=== PATIENT | male | born 1965 | race Caucasian/White ===

== ENCOUNTER 2017-01-25 15:08 | Emergency (ER) | payer BC, OTHER ==
[~2017-01-25] VITALS: Ht 182.9 cm; Wt 79.4 kg
[2017-01-25 15:10] VITALS: BP 147/96
[2017-01-25] MEDS ORDERED: KEFLEX500 MG PO (15:30)
== END 2017-01-25 15:58 | disposition home or self-care (01) ==
LOC: ER 15:08
DX: S61.311A Laceration without foreign body of left index finger with damage to nail, initial encounter (principal); F17.210 Nicotine dependence, cigarettes, uncomplicated; F10.99 Alcohol use, unspecified with unspecified alcohol-induced disorder; W27.0XXA Contact with workbench tool, initial encounter; Y93.89 Activity, other specified; Y92.89 Other specified places as the place of occurrence of the external cause; Y99.8 Other external cause status